=== PATIENT | male | born 1970 | race Caucasian/White ===

== ENCOUNTER 2017-10-20 12:18 | Emergency (ER) | END 2017-10-20 18:39 | disposition home or self-care (01) ==

== ENCOUNTER 2017-10-24 10:24 | Inpatient (IN) | END 2017-11-02 15:39 | disposition home or self-care (01) | DRG 202 ==

== ENCOUNTER 2017-11-09 21:07 | Emergency (ER) | END 2017-11-10 09:38 ==

== ENCOUNTER 2018-07-14 19:53 | Emergency (ER) | payer OTHER ==
[~2018-07-14] VITALS: Ht 180.3 cm; Wt 181.8 kg
[~2018-07-14 19:53] MED LIST: ACID1TAB14 PO; ASPI-817 PO; GABA300C16 PO; HYDR25TA6 PO; IPRA4AER INHALATION; LISI-471 PO; PRED10TA PO; SERT50TA6 PO; TIOT18CA INH; TOPI25CA2 PO
[2018-07-14 19:59] VITALS: Ht 180.3 cm; Wt 181.8 kg
[2018-07-14] MEDS ORDERED: OXYCODONE/ACETAMINOPHEN (5/325) TAB PO ONE (20:30)
--- NOTE | 2018-07-14 20:34 | ERD ---
ER Documentation Chief Complaint Chief Complaint BIBA RA84,nonradiating L chest sharp pain,meth used 1.5 days ago per pt HPI 48-year-old man complains of sharp left-sided chest pain nonradiating and nonexertional, he has a long history of drug abuse and states he used methamphetamines about 2 days ago. He denies fevers or chills, no cough, no calf or leg swelling, no shortness of breath, no headache or blurry vision. Patient has had multiple similar episodes of this chest pain and his episodes usually resolve spontaneously after a couple days. ROS All systems reviewed and are negative except as per history of present illness. Medications Home Meds Active Scripts Naproxen* (Naprosyn*) 500 Mg Tablet, 500 MG PO BID PRN for PAIN AND/OR INFLAMMATION, #30 TAB Prov:CHANTELLE ADAMS MD 07/14/18 Albuterol/Ipratropium* (Combivent Respimat*) 20-100 Mcg/Inh - 4 Gm Aer.w.adap, 1 PUFF INHALATION QID, #1 INHALER 3 Refills Prov:GARDENIA LONGORIA MD 11/02/17 Prednisone* (Prednisone*) 10 Mg Tab, 10 MG PO DAILY for 8 Days, #9 TAB Take 2 tabs (20mg) for 2 days then 1 tab (10mg) for 3 days then 0.5 tabs (5 mg) for 3 days Prov:GARDENIA LONGORIA MD 11/02/17 Tiotropium Drain* (Spiriva*) 18 Mcg Cap.w.dev, 1 INH INH DAILY for 30 Days, #30 CAP 2 Refills Prov:GARDENIA LONGORIA MD 11/02/17 Sertraline Hcl* (Sertraline Hcl*) 50 Mg Tablet, 50 MG PO DAILY, #15 TAB Prov:CHANTELLE ADAMS MD 12/06/15 Reported Medications Metformin* (Glucophage*) 500 Mg Tab, 500 MG PO BID, #90 TAB 07/14/18 Aripiprazole* (Abilify*) 20 Mg Tablet, 20 MG PO DAILY, #30 TAB 07/14/18 Bupropion Hcl* (Wellbutrin SR*) 150 Mg Tablet.sa, 150 MG PO BID, TAB.SA 07/14/18 Venlafaxine Hcl* (Effexor XR*) 150 Mg Cap.sr.24h, 150 MG PO DAILY, CAP 2/22/19 Topiramate* (Topiramate*) 25 Mg Cap.sprink, 50 MG PO DAILY, CAP 11/09/17 Lisinopril* (Lisinopril*) 20 Mg Tablet, 20 MG PO DAILY, #30 TAB 11/09/17 Hydrochlorothiazide* (Hydrochlorothiazide*) 25 Mg Tab, 25 MG PO DAILY, #30 TAB 11/09/17 Gabapentin* (Gabapentin*) 300 Mg Capsule, 300 MG PO TID, #90 CAP 11/09/17 Aspirin* (Aspirin* EC) 81 Mg Tablet.dr, 81 MG PO DAILY, TAB 11/09/17 Discontinued Reported Medications Lactobacillus Acidoph/Bulgaricus* (Floranex*) 1 Each Tablet, 1 TAB.CHEW PO DAILY, TAB.CHEW 11/09/17 Allergies Allergies: Coded Allergies: haloperidol (Verified Adverse Reaction, Unknown, TONGUE SWELLING, 07/14/18) PMhx/Soc History of recurrent chest pain with prior inpatient workups that have been neg ative for cardiac etiology, prior normal echocardiogram, obesity, hypertension, dyslipidemia, schizophrenia, methamphetamine and drug abuse, history of bradycardia, opioid dependence Medical and Surgical Hx: pt denies Surgical Hx History of Surgery: No Anesthesia Reaction: No Hx Neurological Disorder: No Hx Respiratory Disorders: Yes (SLEEP APNEA) Hx Cardiac Disorders: Yes (HTN, CAD) Hx Psychiatric Problems: Yes (BIPOLAR, SCHIZOPHRENIA) Hx Alcohol Use: Yes (OCASSIONAL) Hx Substance Use: Yes (METH) Hx Tobacco Use: Yes (DAILY SMOKER) Smoking Status: Current every day smoker FmHx Family History: No diabetes Physical Exam Vitals Vital Signs Date Temp Pulse Resp B/P (MAP) Pulse Ox O2 O2 Flow FiO2 Time Delivery Rate 07/14/18 95 24 120/73 96 Room Air 20:36 (89) 07/14/18 98.4 98 18 164/87 94 19:59 (112) Physical Exam GENERAL: Well-developed, well-nourished, anxious, agitated, afebrile HEENT: Moist mucous membranes, pink conjunctiva, no cervical spine tenderness or step-off deformities, no goiter, no jaundice or icterus, extraocular movements intact without pain. No submandibular induration, and no pharyngeal erythema NEURO: Alert and oriented 3, cranial nerves II through XII intact bilaterally, pupils equal round reactive to light, no focal deficits or facial asymmetry, sensation intact distally Strength 5/5 in upper and lower extremities bilaterally CARDIAC: Tachycardic and regular, no murmurs rubs or gallops LUNGS: Clear bilaterally no wheezing crackles or stridor ABDOMEN: Soft nontender, no guarding, no rigidity, no rebound, no psoas sign no obturator sign. Normoactive bowel sounds SKIN: Warm and dry to touch, no abrasions, contusions, or hematomas, no lacerations, no ecchymosis, no target lesions, and without ulcers EXTREMITIES: No clubbing cyanosis or edema, calves are bilaterally symmetrical, no Homans sign, no popliteal cord sign. Distal pulses equal and bilateral PSYCH: Anxious Result Diagram: 07/14/18211007/14/182110 Results 24 hrs Laboratory Tests Test 07/14/18 21:11 White Blood Count 11.0 10^3/ul Red Blood Count 4.96 10^6/ul Hemoglobin 14.4 g/dl Hematocrit 44.3 % Mean Corpuscular Volume 89.3 fl Mean Corpuscular Hemoglobin 29.0 pg Mean Corpuscular Hemoglobin Concent 32.5 g/dl Red Cell Distribution Width 14.3 % Platelet Count 207 10^3/UL Mean Platelet Volume 12.3 fl Immature Granulocytes % 0.700 % Neutrophils % 68.3 % Lymphocytes % 21.4 % Monocytes % 7.2 % Eosinophils % 1.9 % Basophils % 0.5 % Nucleated Red Blood Cells % 0.0 /100WBC Immature Granulocytes # 0.080 10^3/ul Neutrophils # 7.5 10^3/ul Lymphocytes # 2.4 10^3/ul Monocytes # 0.8 10^3/ul Eosinophils # 0.2 10^3/ul Basophils # 0.1 10^3/ul Nucleated Red Blood Cells # 0.0 10^3/ul Sodium Level 141 mmol/L Potassium Level 4.2 mmol/L Chloride Level 103 mmol/L Carbon Dioxide Level 29 mmol/L Anion Gap 9 Blood Urea Nitrogen 14 mg/dl Creatinine 1.05 mg/dl Est Glomerular Filtrat Rate mL/min > 60 mL/min Glucose Level 99 mg/dl Calcium Level 9.4 mg/dl Total Bilirubin 0.1 mg/dl Direct Bilirubin 0.00 mg/dl Indirect Bilirubin 0.1 mg/dl Aspartate Amino Transf (AST/SGOT) 40 IU/L Alanine Aminotransferase (ALT/SGPT) 30 IU/L Alkaline Phosphatase 82 IU/L Troponin I < 0.012 ng/ml B-Type Natriuretic Peptide 36 PG/ML Total Protein 7.5 g/dl Albumin 4.2 g/dl Globulin 3.30 g/dl Albumin/Globulin Ratio 1.27 Lipase 32 U/L Current Medications Medications Dose Sig/Russel Start Time Status Last (Trade) Ordered Route PRN Stop Time Admin Dose Reason Admin Oxycodone/ 1 tab ONCE ONCE 07/14/18 DC 07/14/18 Acetaminophen PO 20:30 20:36 (Percocet 07/14/18 20:32 (5/ 325)) Procedures/MDM IV line was established patient was placed on cardiac rehab nurse rhythm strip revealed a sinus tachycardia at 100 bpm with upright P and T waves. Patient was afebrile EKG performed, read by me revealed a normal sinus rhythm at 97 bpm, normal axis, narrow QRS complex, no concerning ST elevations or depressions noted I administered Percocet 1 tablet p.o. for pain control One AP view of the chest performed, read by me reveals no acute infiltrates, normal mediastinum, sharp costophrenic and cardiac borders, no air under the diaphragm. Otherwise unremarkable chest x-ray. CBC was normal, electrolytes normal, liver function tests normal, troponin negative. Patient chest pain resolved tachycardia resolved and vital signs are normal at this time. He will be discharged to follow-up with PMD. Differential diagnoses considered, included but not limited to acute coronary syndrome, pulmonary embolism, aortic dissection, abdominal aortic aneurysm, sepsis, stroke, meningitis, encephalitis, pneumonia, appendicitis, cholec ystitis, bowel obstruction, pyelonephritis, nephrolithiasis, cystitis, as well as metabolic, hematologic, and electrolyte abnormalities. As well as abscess, cellulitis, fractures, and dislocations. Patient feels much better at this time, and vital signs are normal, symptoms have improved. I did give strict instructions to return to the ED if symptoms continue or worsen, patient will otherwise follow-up with primary care physician. Patient understood instructions and agreed to plan. Disclaimer: Inadvertent spelling and grammatical errors are likely due to EHR/dictation software use and do not reflect on the overall quality of patient care. Also, please note that the electronic time recorded on this note does not necessarily reflect the actual time of the patient encounter. Departure Diagnosis: Primary Impression: Chest pain Chest pain type: unspecified Qualified Codes: R07.9 - Chest pain, unspecified Additional Impression: Schizophrenia Schizophrenia type: unspecified Qualified Codes: F20.9 - Schizophrenia, unspecified Condition: CHANTELLE Krueger MD Jul 14, 2018 20:34
[2018-07-14] MEDS ORDERED: BUPR-165 PO (21:46)
[2018-07-14] MEDS ORDERED: VENL150C PO ×2 (21:46→23:19)
[2018-07-14] MEDS ORDERED: ARIP20TA5 PO ×2 (21:46→23:19)
[2018-07-14] MEDS ORDERED: METF-849 PO (21:55)
[2018-07-14] MEDS ORDERED: NAPR-985 PO (22:45)
[2018-07-14] MEDS ORDERED: BUPR-75 PO (23:19)
[2018-07-14 23:34] VITALS: BP 128/72; PULSE 101; RESP 20
[2018-07-15] MEDS ORDERED: QUET100T32 PO (02:06)
== END 2018-07-14 23:38 | disposition home or self-care (01) ==
LOC: E/R 19:53
DX: R07.9 Chest pain, unspecified (principal); F20.9 Schizophrenia, unspecified; I10 Essential (primary) hypertension; I25.10 Atherosclerotic heart disease of native coronary artery without angina pectoris; F17.210 Nicotine dependence, cigarettes, uncomplicated; E66.9 Obesity, unspecified; Z79.82 Long term (current) use of aspirin; Z79.84 Long term (current) use of oral hypoglycemic drugs
CPT/HCPCS: 36415; 71045; 80053; 83690; 83880; 84484; 85025; Z7502; Z7610

== ENCOUNTER 2018-07-14 23:40 | Emergency (ER) | payer OTHER ==
[~2018-07-14] VITALS: Wt 181.0 kg
[~2018-07-14 23:40] MED LIST changes: +ARIP20TA5 PO; +BUPR-165 PO; +BUPR-75 PO; +METF-849 PO; +NAPR-985 PO; +VENL150C PO
--- NOTE | 2018-07-15 01:21 | ERD ---
ER Documentation Chief Complaint Chief Complaint bib self, cc: " I need mental help, I am feeling suicidal" HPI This is a 48-year-old male with a past medical history of hypertension, hyper lipidemia, morbid obesity, chronic recurrent chest pain status post multiple negative inpatient cardiac workups, polysubstance abuse including methamphetamine and opiates, schizophrenia noncompliant on medications who is currently presenting with suicidal ideations. The patient reports noncompliance with his medications for some time. He is supposed to be on Abilify, Wellbutrin and Effexor, but he reports that he does not actually take these medicines. The patient reports several days of hearing voices. These voices are telling him to hurt himself. The patient does not endorse any auditory hallucinations. He does not endorse any homicidal ideations. The patient was evaluated earlier today for an episode of sharp nonradiating nonexertional left-sided chest pain that has since resolved. The patient was worked up fully and ultimately discharged in stable condition. The patient denies feeling sick recently. The patient denies fever or chills. The patient has had no headache or vision changes. The patient does not endorse neck or back pain. The patient denies lightheadedness or dizziness. The patient has had no chest pain or trouble breathing. The patient denies nausea or vomiting. The patient denies abdominal pain. The patient denies changes to bowel movements or urination. The patient has had no focal deficits. The patient has had no weakness or numbness or tingling to the face or extremities. ROS All systems reviewed and are negative except as per history of present illness. Medications Home Meds Active Scripts Bupropion Hcl* (Wellbutrin XL*) 150 Mg Tab.sr.24h, 150 MG PO QHS, #30 TAB.SA Prov:CHANTELLE ADAMS MD 07/14/18 Venlafaxine Hcl* (Effexor XR*) 150 Mg Cap.sr.24h, 150 MG PO DAILY, #30 CAP Prov:CHANTELLE ADAMS MD 07/14/18 Aripiprazole* (Abilify*) 20 Mg Tablet, 20 MG PO DAILY, #30 TAB Prov:CHANTELLE ADAMS MD 07/14/18 Naproxen* (Naprosyn*) 500 Mg Tablet, 500 MG PO BID PRN for PAIN AND/OR INFLAMMATION, #30 TAB Prov:CHANTELLE ADAMS MD 07/14/18 Albuterol/Ipratropium* (Combivent Respimat*) 20-100 Mcg/Inh - 4 Gm Aer.w.adap, 1 PUFF INHALATION QID, #1 INHALER 3 Refills Prov:GARDENIA LONGORIA MD 11/02/17 Prednisone* (Prednisone*) 10 Mg Tab, 10 MG PO DAILY for 8 Days, #9 TAB Take 2 tabs (20mg) for 2 days then 1 tab (10mg) for 3 days then 0.5 tabs (5 mg) for 3 days Prov:GARDENIA LONGORIA MD 11/02/17 Tiotropium [place]* (Spiriva*) 18 Mcg Cap.w.dev, 1 INH INH DAILY for 30 Days, #30 CAP 2 Refills Prov:GARDENIA LONGORIA MD 11/02/17 Sertraline Hcl* (Sertraline Hcl*) 50 Mg Tablet, 50 MG PO DAILY, #15 TAB Prov:CHANTELLE ADAMS MD 12/06/15 Reported Medications Quetiapine Fumarate* (Quetiapine Fumarate*) 100 Mg Tablet, 100 MG PO HS, TAB 07/15/18 Metformin* (Glucophage*) 500 Mg Tab, 500 MG PO BID, #90 TAB 07/14/18 Aripiprazole* (Abilify*) 20 Mg Tablet, 20 MG PO DAILY, #30 TAB 07/14/18 Bupropion Hcl* (Wellbutrin SR*) 150 Mg Tablet.sa, 150 MG PO BID, TAB.SA 07/14/18 Venlafaxine Hcl* (Effexor XR*) 150 Mg Cap.sr.24h, 150 MG PO DAILY, CAP 07/14/18 Lisinopril* (Lisinopril*) 20 Mg Tablet, 20 MG PO DAILY, #30 TAB 11/09/17 Hydrochlorothiazide* (Hydrochlorothiazide*) 25 Mg Tab, 25 MG PO DAILY, #30 TAB 11/09/17 Gabapentin* (Gabapentin*) 300 Mg Capsule, 300 MG PO TID, #90 CAP 11/09/17 Aspirin* (Aspirin* EC) 81 Mg Tablet.dr, 81 MG PO DAILY, TAB 11/09/17 Discontinued Reported Medications Topiramate* (Topiramate*) 25 Mg Cap.sprink, 50 MG PO DAILY, CAP 11/09/17 Lactobacillus Acidoph/Bulgaricus* (Floranex*) 1 Each Tablet, 1 TAB.CHEW PO DAILY, TAB.CHEW 11/09/17 Allergies Allergies: Coded Allergies: haloperidol (Verified Adverse Reaction, Unknown, TONGUE SWELLING, 07/14/18) PMhx/Soc History of Surgery: No Anesthesia Reaction: No Hx Neurological Disorder: No Hx Respiratory Disorders: Yes (SLEEP APNEA) Hx Cardiac Disorders: Yes (HTN, CAD) Hx Psychiatric Problems: Yes (BIPOLAR, SCHIZOPHRENIA) Hx Alcohol Use: Yes (OCASSIONAL) Hx Substance Use: Yes (METH) Hx Tobacco Use: Yes (DAILY SMOKER) Smoking Status: Current every day smoker FmHx Family History: No diabetes Physical Exam Vitals Vital Signs Date Temp Pulse Resp B/P (MAP) Pulse Ox O2 O2 Flow FiO2 Time Delivery Rate 07/15/18 87 20 124/70 98 Room Air 02:41 (88) 07/14/18 98.3 108 19 161/82 96 23:46 (108) Physical Exam Const: No apparent distress, well-developed, well-nourished Head: Normocephalic, Atraumatic Eyes: Normal Conjunctiva. Extraocular movements intact. Pupils equal, round and reactive to light ENT: Normal External Ears, Nose and Mouth. Neck: Full range of motion. No meningismus. Resp: Clear to auscultation bilaterally, No wheezes, rales or rhonchi Cardio: Regular rate and rhythm. No murmurs, rubs or gallops Abd: Morbid obesity. Soft, non tender, non distended. Normal bowel sounds Skin: No petechiae or rashes Back: No midline tenderness. No CVA tenderness Ext: No cyanosis, or edema Neur: Awake and alert, oriented 4. Cranial nerves intact. No facial droop. Normal strength, sensation and coordination. Psych: Calm and cooperative. Reported auditory hallucinations with suicidal ideations. No homicidal ideations. No visual hallucinations. Results 24 hrs Laboratory Tests Test 07/15/18 02:05 Salicylates Level < 1.0 mg/dl Acetaminophen Level < 10.0 ug/ml Ethyl Alcohol Level < 10.0 mg/dl Procedures/MDM MDM The patient's presentation warrants further investigation. Previous medical records, if available, were reviewed. LABS The patient's laboratory testing was obtained and reviewed. No emergent treatment was required unless described below. CBC: No E/o of systemic infection or severe anemia or thrombocytopenia CMP: No E/o severe acidosis or alkalosis or renal failure or liver disease or diabetic ketoacidosis Tox: No E/o alcohol abuse. No E/o salicylate or acetaminophen use. UDS pending. TREATMENT/DISPOSITION The patient's workup included a medical screening examination, laboratory analysis, and diagnostic imaging such as EKG, chest x-ray or CT brain as indicated. The patient's laboratory analysis, diagnostic imaging do not suggest an acute organic pathology. At this time I believe the patient's presentation is consistent with underlying psychiatric illness and likely exacerbation of this illness and/or psychosis. I have a much lower clinical concern for delirium or acute organic pathology such as toxicologic, metabolic, ischemic, intracranial hemorrhage, infectious process. However, we must rule this out prior to relying a diagnosis of underlying psychiatric illness. The patient is medically cleared for psychiatric evaluation. I kept the patient and/or family informed of laboratory and diagnostic imaging results throughout the emergency room course. The patient did not require any physical or chemical restraint while under my care. Psychiatric consultation: Telemetry medicine psychiatry has been consulted on this case to evaluate the patient for possible acute psychiatric illness and felt that the patient would require inpatient hospitalization. Medication recommendations will be addressed. The patient is currently pending PET team evaluation. The patient will be signed out to the oncoming physician, Dr. Potts, at 6AM pending PET team evaluation. OBSERVATION NOTE Time: 4 hours Family Hx: No Diabetes Evaluation: Multiple exams showed improving symptoms and no evidence of worsening psychosis Disclaimer: Inadvertent spelling and grammatical errors are likely due to EHR/dictation software use and do not reflect on the overall quality of patient care. Note that the electronic time recorded on this note does not necessarily reflect the actual time of the patient encounter. Departure Diagnosis: Primary Impression: Suicidal ideation Additional Impressions: Auditory hallucinations Psychosis Psychosis type: unspecified psychosis type Qualified Codes: F29 - Unspecified psychosis not due to a substance or known physiological condition Condition: HUGH Baker MD Jul 15, 2018 01:21
[2018-07-15] MEDS ORDERED: QUET100T32 PO (02:06)
--- NOTE | 2018-07-15 03:16 | PSY ---
Date/Time of Note Date/Time of Note DATE: 07/15/18 TIME: 03:04 Psychiatric Subjective Eval Consent Pt consented to telemedicine: Yes Subjective Evaluation Patient location: emergency Chief Complaint: bib self, cc: " I need mental help, I am feeling suicidal" History of present illness He stated he has been feeling depressed and stated that "my voices are telling me to hurt myself." He was recently evaluated and cleared for chest pain and was then readmitted to the ED. He stated the voices are telling him that he is worthless and to kill himself. He stated he has not taken his medication for about 1 1/2 to 2 weeks, and this is how long he has had the symptoms. He stated he gets better when he takes the medication, but he sometimes forgets to take the medications. He stated the voices do not tell him how to kill himself, but he sometimes thinks about running into traffic or overdosing. He denied any violent thoughts stating, "Never that, just myself." Past psychiatric history Effexor, Wellbutrin, Gabapentin, Seroquel. He stated he forgets to take them sometimes. He is diagnosed with Schizoaffective Disorder. Hospitalization: Suicidal Attempt(s) (Three attempts, one time he was on life support after an overdose) Family History Some ADHD in family. Mom has depression and anxiety. Medical history Problems Medical Problems: (1) Aggressive behavior of adult Status: Acute (2) Alcohol abuse Status: Acute (3) Auditory hallucinations Status: Acute (4) Chest pain Status: Acute (5) Chest pain Status: Acute (6) Chest pain Status: Acute (7) Dizziness Status: Acute (8) Psychosis Status: Acute (9) Schizophrenia Status: Acute (10) Shortness of breath Status: Acute (11) Suicidal ideation Status: Acute Allergies: Coded Allergies: haloperidol (Verified Adverse Reaction, Unknown, TONGUE SWELLING, 07/14/18) Substance Abuse Substance abuse history: Yes ("I consider myself an alcoholic." He has been drinking from morning to night in the past but lately has used less alcohol and more methamphetamine. Last meth use two days ago.) Prior substance abuse treatmen: No Social History Marital status: single Level of education: "I hardly went to school." +Learning disability. DPA/Conservatorship: No Occupation/[facility]: Lives with mom, on disability. Psychiatric Objective Eval Mental Status Examination: Appearance: Groomed, Other (Obese) Eye Contact: Good Psychomotor Activity: Normal Behavior: Cooperative AFFECT: Appropriate Mood: Depressed Though Process: Linear Thought Content: Hallucinations Suicidal: Yes Homicidal: No On 72 hour hold: No Orientation: x4 Cognition: Alert Insight: Intact Judgement: Intact Attention Span: Intact Laboratory Results Laboratory Tests Test 07/15/18 02:05 Salicylates Level < 1.0 mg/dl Acetaminophen Level < 10.0 ug/ml Ethyl Alcohol Level < 10.0 mg/dl Assessment and Plan Assessment/Diagnosis Diagnosis Unspecified Psychosis F29 Recommendation/Plan Discharge Disposition: Psychiatric inpatient Legal Status: Voluntary SAVANNAH HEREDIA MD Jul 15, 2018 03:15
[2018-07-15 09:16] VITALS: BP 147/70; PULSE 84; RESP 14
== END 2018-07-15 11:15 | disposition home or self-care (01) ==
LOC: E/R 23:40
DX: F29 Unspecified psychosis not due to a substance or known physiological condition (principal); I10 Essential (primary) hypertension; I25.10 Atherosclerotic heart disease of native coronary artery without angina pectoris; F17.210 Nicotine dependence, cigarettes, uncomplicated; Z79.82 Long term (current) use of aspirin; Z79.84 Long term (current) use of oral hypoglycemic drugs
CPT/HCPCS: 80307; 82962; 93005; Z7502; 99285